=== PATIENT | male | born 1940 | race Caucasian/White ===

== ENCOUNTER 2016-05-17 13:28 | Emergency (ER) | payer MEDICARE ==
[2016-05-17 16:14] LABS: BASOPHILS 0.6 % (0.0-2.0); EOSINOPHILS 3.4 % (0-7); HEMATOCRIT 43.2 % (42.0-54.0); HEMOGLOBIN 14.6 g/dL (13.5-17.5); IMMATURE GRANULOCYTES 0.2 % (0-5); LYMPHOCYTES 41.5 % (15-50); MCH 30.6 pg (26.0-34.0); MCHC 33.8 g/dL (31.0-37.0); MCV 90.6 fL (80.0-100.0); MEAN PLATELET VOLUME 9.9 fL (7.4-10.4); MONOCYTES 10.2 % (2-11); NEUTROPHILS 44.1 % (40-80); PLATELET COUNT 214 10x3/uL (130-400); RBC 4.77 10x6/uL (4.20-6.10); RDW 13.2 % (11.5-14.5); WBC 8.5 10x3/uL (4.8-10.8)
[2016-05-17 16:53] LABS: ALBUMIN 3.8 g/dL (3.4-5.0); ALKALINE PHOSPHATASE 52 U/L (46-116); ALT (SGPT) 22 U/L (10-68); BILIRUBIN - TOTAL 0.27 mg/dL (0.2-1.3); CALC OSMOLALITY 279 mosm/kg (275-300); CALCIUM 9.2 mg/dL (8.5-10.1); CARBON DIOXIDE 30.4 mmol/L (21.0-32.0); CHLORIDE - SERUM 100 mmol/L (98-107); CREATININE - SERUM 1.2 mg/dL (0.6-1.3); GLUCOSE 114 mg/dL (74-106); POTASSIUM - SERUM 4.3 mmol/L (3.5-5.1); PROTEIN - SERUM 7.7 g/dL (6.4-8.2); SODIUM 138 mmol/L (136-145); UREA NITROGEN 20 mg/dL (7-18); eGFR NON AFRICAN AMERICAN 63 mL/min (90-120)
[2016-05-17 17:02] LABS: CKMB 1.5 U/L (0.0-3.6); CREATINE KINASE 116 UL (21-232)
[2016-05-17 17:08] LABS: TROPONIN-I < 0.017 ng/mL (0.000-0.060)
[2016-05-17 17:21] LABS: APPEARANCE CLEAR (CLEAR); BILIRUBIN NEGATIVE (NEGATIVE); COLOR YELLOW (YELLOW); GLUCOSE NEGATIVE (NEGATIVE); KETONE NEGATIVE (NEGATIVE); LEUKOCYTE ESTERASE NEGATIVE (NEGATIVE); NITRITE NEGATIVE (NEGATIVE); PROTEIN TRACE mg/dL (NEGATIVE); RED CELLS - URINE 0-5 /hpf (0-5); UROBILINOGEN NORMAL (NORMAL); WHITE CELLS - URINE OCC /hpf (0-5)
== END 2016-05-17 17:45 | disposition home or self-care (01) ==
LOC: D.ER 13:28
PROVIDERS: Nurse Practitioner Family
DX: I10 Essential (primary) hypertension (principal); R42 Dizziness and giddiness; R00.1 Bradycardia, unspecified

== ENCOUNTER → 2017-06-08 12:49 | Outpatient (CLI) | payer MEDICARE, MEDICAID ==
[~2017-06-08 12:49] MED LIST: FOLIC ACID1 MG PO; METHOTREXATE2.5 MG PO; NEXIUM20 MG PO; ORAPRED ODT10 MG/TAB; PREDNISONE5 MG PO; TREXALL15 MG; ULTRAM50 MG
[2017-06-27 10:11] VITALS: BMI 23.0
== END | disposition home or self-care (01) ==
LOC: D.CT 12:49
DX: N28.89 Other specified disorders of kidney and ureter (principal)

== ENCOUNTER → 2017-06-11 14:44 | Outpatient (CLI) | payer MEDICARE, MEDICAID ==
[2017-06-27 10:11] VITALS: BMI 23.0
== END | disposition home or self-care (01) ==
LOC: D.LAB 14:44
DX: Z12.5 Encounter for screening for malignant neoplasm of prostate (principal)

== ENCOUNTER → 2017-06-15 12:06 | Outpatient (CLI) | payer MEDICARE, MEDICAID | END | disposition home or self-care (01) | LOC: D.NM 12:06 | DX: N13.0 Hydronephrosis with ureteropelvic junction obstruction (principal) ==

== ENCOUNTER 2017-06-22 21:29 | Outpatient (CLI) | payer MEDICARE, MEDICAID ==
[~2017-06-22] VITALS: Ht 170.2 cm; Wt 66.2 kg
--- NOTE | ~2017-06-22 | OP ---
PATIENT NAME: QI GRAMAJO MEDICAL RECORD: [id number] :40 LOCATION:D.M2 D.2137 ADMISSION DATE:06/23/17 SURGEON: TERRELL PAYNE MD DATE OF OPERATION: 06/23/2017 SURGEON: Terrell Payne MD ANESTHESIA: General anesthesia by Matheus Charles CRNA PREOPERATIVE DIAGNOSIS: Left ureteropelvic junction obstruction. POSTOPERATIVE DIAGNOSIS: Left ureteropelvic junction obstruction. PROCEDURES: Cystoscopy, left retrograde pyelogram, left ureteral stent insertion of 6-Lithuanian x 26 cm without string attached. FINDINGS: On cystoscopy, large obstructive prostate. Single ureteral orifices bilaterally. No bladder tumors. On retrograde pyelogram, normal ureter. Left ureteropelvic junction obstruction with quite severe left renal pelvis hydronephrosis. BLOOD LOSS: None. CLINICAL HISTORY: This is a 76-year-old male who started developing left flank pain episodes since around 2016. A CT scan of abdomen and pelvis revealed left renal pelvis hydronephrosis with a normal-caliber ureter, suggestive of ureteropelvic junction obstruction. I obtained Lasix renal scan and this showed obstruction of the left kidney. This was consistent with UP junction. Further analysis of the images of the CT shows that the main renal artery split into an upper pole and a lower pole branch. The renal pelvis and ureteral insertion point seem to be closely associated with the upper pole renal artery branch. For this reason, he is probably going to need a dismembered pyeloplasty in the future. Since I can only offer him open surgery, I was planning to refer him to [place] for a robotic dismembered pyeloplasty. In the meantime, he came back through the Emergency Room with acute left flank pain last night. Repeat CT scan shows even greater enlargement of the left renal pelvis. Urinalysis does not show any signs of infection. He comes now to have a left ureteral stent inserted to alleviate his pain. Finally, he has an elevated PSA of 6.25 and a positive family history of prostate cancer and we will have to deal with that in the near future also. He is not allergic to any medications and he was given Ancef on-call to the OR. DESCRIPTION OF PROCEDURE: The patient was given induction of general anesthesia. He was then placed into dorsal lithotomy position and prepped and draped. A 21-Lithuanian cystoscope with 30-degree lens was used for cystoscopy. We injected lidocaine jelly into the urethra. Cystoscopy findings are outlined as above. We do not see radio densities to suggest any stones. I wanted to get an indication of how the ureter was inserted on to the renal pelvis. Therefore, a retrograde pyelogram was performed by injecting diluted contrast through a 5-Lithuanian open-ended ureteral catheter into the left ureteral orifice. The ureter seems to insert into the mid upper portion of the renal pelvis. No ureteral strictures are seen except at the UP junction. A Sensor wire was then put in through the lumen of the ureteral catheter up to the renal pelvis. The ureteral catheter was then completely removed. Over the wire, we inserted a 6-Lithuanian x 26-cm ureteral stent. The string on the distal end of stent was OPERATIVE REPORT [id number] QI GRAMAJO removed prior to insertion. The reason for this is I do not want him to accidentally pull the stent out on his own. The stent was placed into position and then the wire was withdrawn to allow the proximal end to coil. The distal end was pushed into the bladder using a pusher. The wire was then entirely withdrawn. The bladder was emptied through the cystoscope and then the scope was removed. The patient was awakened and brought to the recovery room. He will be discharged home today. He has a follow up with me on Sunday, at which time we will arrange for prostate biopsy and referral to [facility]. TRANSINT:[id number] Voice Confirmation ID: [id number] DOCUMENT ID: [id number] TERRELL PAYNE MD at 1316 CC: [id number] DICTATION DATE: 06/23/171814 FLATWORK FINISHER: 06/23/171928 DIS IN 06/23/17 [facility] [address] [place] [address]
[2017-06-22 22:54] LABS: APPEARANCE CLEAR (CLEAR); BILIRUBIN NEGATIVE (NEGATIVE); COLOR YELLOW (YELLOW); GLUCOSE NEGATIVE (NEGATIVE); KETONE NEGATIVE (NEGATIVE); NITRITE NEGATIVE (NEGATIVE); PROTEIN NEGATIVE (NEGATIVE); UROBILINOGEN NORMAL (NORMAL)
[2017-06-22 23:18] LABS: BASOPHILS 0.2 % (0-2); EOSINOPHILS 1.6 % (0-7); HEMATOCRIT 37.5 % (42.0-54.0); HEMOGLOBIN 12.8 g/dL (13.5-17.5); IMMATURE GRANULOCYTES 0.6 % (0-5); LYMPHOCYTES 22.3 % (15-50); MCH 30.3 pg (26.0-34.0); MCHC 34.1 g/dL (31.0-37.0); MCV 88.9 fL (80.0-100.0); MEAN PLATELET VOLUME 8.7 fL (7.4-10.4); MONOCYTES 11.5 % (2-11); NEUTROPHILS 63.8 % (40-80); RBC 4.22 10x6/uL (4.20-6.10); RDW 16.3 % (11.5-14.5); WBC 10.8 10x3/uL (4.8-10.8)
[2017-06-22 23:21] LABS: PLATELET COUNT 279 10x3/uL (130-400)
[2017-06-22 23:35] LABS: ALBUMIN 3.3 g/dL (3.4-5.0); ANION GAP 11.4 mmol/L (8-16); BILIRUBIN - TOTAL 0.36 mg/dL (0.2-1.3); CALCIUM 8.7 mg/dL (8.5-10.1); CARBON DIOXIDE 28.4 mmol/L (21.0-32.0); CREATININE - SERUM 2.2 mg/dL (0.6-1.3); POTASSIUM - SERUM 3.8 mmol/L (3.5-5.1)
[2017-06-23] VITALS (7 sets, daily range): BP systolic 120–162; BP diastolic 73–82; Ht 170.2 cm; Wt 66.2 kg
[2017-06-23] MEDS ORDERED: NEXIUM20 MG PO (07:38)
[2017-06-23] MEDS ORDERED: FOLIC ACID1 MG PO (07:39)
[2017-06-23] MEDS ORDERED: TREXALL15 MG (07:41)
[2017-06-23] MEDS ORDERED: ORAPRED ODT10 MG/TAB (07:42)
[2017-06-23] MEDS ORDERED: ULTRAM50 MG (07:44)
[2017-06-26] MEDS ORDERED: PREDNISONE5 MG PO (15:53)
[2017-06-26] MEDS ORDERED: METHOTREXATE2.5 MG PO (15:53)
== END 2017-06-23 22:49 | disposition home or self-care (01) ==
LOC: OBSVTIME → D.ER 21:29 → D.OPS 21:29 → OBSVTIME 06-23 02:20 → D.SDCHOLD 06-23 02:20 → D.ER 06-23 02:20 → D.M2 06-23 06:16 → D.SDCHOLD 06-23 06:16 → D.M2 06-23 22:49 → D.OPS 06-23 22:49 → D.M2 06-23 22:49
PROVIDERS: Family Medicine; Physician Assistant Medical
DX: N13.30 Unspecified hydronephrosis (principal)

== ENCOUNTER 2017-06-27 08:00 | Day surgery (SDC) | payer MEDICARE, MEDICAID | END 2017-06-27 13:50 | disposition home or self-care (01) | LOC: D.PAN 08:00 | DX: R97.20 Elevated prostate specific antigen [PSA] (principal); N13.0 Hydronephrosis with ureteropelvic junction obstruction; Z01.812 Encounter for preprocedural laboratory examination; K21.9 Gastro-esophageal reflux disease without esophagitis ==

== ENCOUNTER → 2017-10-31 07:51 | Outpatient (CLI) | payer MEDICARE, MEDICAID ==
[2017-06-27 10:11] VITALS: BMI 23.0
== END | disposition home or self-care (01) ==
LOC: D.US 07:51
DX: N50.89 Other specified disorders of the male genital organs (principal)

== ENCOUNTER → 2018-06-06 14:59 | Outpatient (CLI) | payer MEDICARE, MEDICAID ==
[2017-06-27 10:11] VITALS: BMI 23.0
== END | disposition home or self-care (01) ==
LOC: D.CT 14:59
DX: R94.39 Abnormal result of other cardiovascular function study (principal)

== ENCOUNTER → 2018-06-14 13:02 | Outpatient (CLI) | payer MEDICARE, MEDICAID ==
[2017-06-27 10:11] VITALS: BMI 23.0
[~2018-06-14 13:02] MED LIST changes: +ASPIRIN EC81 M1 PO; +FLOMAX0.4 MG PO; +PLAVIX75 MG PO; +PRAVACHOL40 MG PO
== END | disposition home or self-care (01) ==
LOC: D.CT 13:02
DX: R94.39 Abnormal result of other cardiovascular function study (principal)

== ENCOUNTER 2018-06-25 09:01 | Inpatient (IN) | payer MEDICARE, MEDICAID ==
[~2018-06-25] VITALS: Ht 170.2 cm; Wt 74.6 kg
[~2018-06-25 09:01] MED LIST changes: -ASPIRIN EC81 M1 PO; -FLOMAX0.4 MG PO; -PLAVIX75 MG PO; -PRAVACHOL40 MG PO
[2018-06-25 10:49] LABS: HEMOGLOBIN 11.9 g/dL (13.5-17.5); MCH 29.1 pg (26.0-34.0); MCHC 33.1 g/dL (31.0-37.0); RBC 4.09 10x6/uL (4.20-6.10); RDW 15.7 % (11.5-14.5); WBC 9.5 10x3/uL (4.8-10.8)
[2018-06-25 11:04] LABS: APTT 34.1 SECONDS (22.8-39.4); INR 1.01 (0.85-1.17); PROTIME 12.8 SECONDS (11.6-15.0)
[2018-06-25 11:05] LABS: ALBUMIN 3.3 g/dL (3.4-5.0); BILIRUBIN - TOTAL 0.37 mg/dL (0.2-1.3); CARBON DIOXIDE 26.8 mmol/L (21.0-32.0); CREATININE - SERUM 1.6 mg/dL (0.6-1.3); POTASSIUM - SERUM 3.8 mmol/L (3.5-5.1); PROTEIN - SERUM 8.2 g/dL (6.4-8.2)
[2018-06-25 11:31] LABS: APPEARANCE CLEAR (CLEAR); BILIRUBIN NEGATIVE (NEGATIVE); COLOR YELLOW (YELLOW); GLUCOSE NEGATIVE (NEGATIVE); KETONE NEGATIVE (NEGATIVE); NITRITE NEGATIVE (NEGATIVE); PROTEIN NEGATIVE (NEGATIVE); UROBILINOGEN NORMAL (NORMAL)
[2018-06-25 11:32] LABS: BACTERIA FEW /hpf (NONE SEEN); EPITHELIAL CELLS OCC /hpf (0-5); RED CELLS - URINE 0-5 /hpf (0-5); WHITE CELLS - URINE RARE /hpf (0-5)
[2018-06-25] MEDS ORDERED: PRAVACHOL40 MG PO (12:20)
[2018-06-25] MEDS ORDERED: PREDNISONE5 MG PO (12:22)
[2018-06-25] MEDS ORDERED: ASPIRIN EC81 M1 PO (12:23)
[2018-06-25] MEDS ORDERED: FLOMAX0.4 MG PO (12:23)
[2018-06-25] MEDS ORDERED: PLAVIX75 MG PO (12:24)
[2018-06-26] VITALS (57 sets, daily range): BP systolic 103–160; BP diastolic 43–85; Ht 170.2 cm; Wt 74.6 kg
--- NOTE | 2018-06-26 11:00 | NUR ---
PT RECEIVED TO ROOM VIA BED. PLACED ON BEDSIDE MONITORING. PT ALERT AND ORIENTED. LEFT CAROTID INCISION. DRESSING INTACT, CYRIL NOTED AND COMPRESSED. RIGHT RADIAL ART LINE, WRIST PROTECTOR IN USE. HAS PIV TO LEFT ARM, SALINE LOCKED. TEDS AND SCDS IN PLACE. CURRENTLY ON 4L NC. FAMILY IS AT BEDSIDE AT THIS TIME. PT DENIES PAIN. PLASMALYTE AT 30ML/HR, NITRO AT 11ML/HR. FARAH CATHETER WITH CONCENTRATED URINE. NO KINKS IN TUBING.
--- NOTE | 2018-06-26 11:12 | NUR ---
DAUGHTER ASSISTING PT TO PLACE HIS DENTURES. UPPER AND LOWER PLATES.
--- NOTE | 2018-06-26 19:00 | NUR ---
PT SET TO SIDE OF BED AND DANGLED. TOLERATED WELL. NO DISTRESS.
--- NOTE | 2018-06-26 22:00 | NUR ---
1929- REPORT RECEIVED, ASSESSMENT COMPLETE PER FLOW SHEET, CVP AND ART LINE ZEROED WITH CLINT RN, PT AAOx4, RESTING COMFORTABLY IN BED, MEDS INFUSING PER ORDERS SEE FLOW SHEET, CYRIL DRAIN COMPRESSED, ALL DRSGS C/D/I, PT DENIES NEEDS OR DISTRESS AT THIS TIME WILL CONTINUE TO MONITOR 2099- PT REPOSITIONED FOR COMFORT, MEDS GIVEN PER JUL, I/s TEACHING WITH PT USE x10 ATTEMPTS, PT DENIES PAIN OR NEEDS AT THIS TIME
[2018-06-27] VITALS (43 sets, daily range): BP systolic 117–151; BP diastolic 42–78
--- NOTE | 2018-06-27 00:51 | NUR ---
1999 DR YOU INFORMED OF PT STATUS. ORDER TO PULL R RADIAL FOX RECEIVED. NO COORELATION BETWEEN NIBP AND FOX. VSS. WILL CONITNUE TO MONITOR. 0100 R RADIAL FOX PULLED. CATHETER TIP INTACT. PRESSURE HELD FOR 15 MINUTES. VSS. HAND WARM TO TOUCH AND WITH FEELING. CAP REFILL LESS THAN 3 SECONDS. DRESSING APPLIED WILL CONTINUE TO MONITOR.
--- NOTE | 2018-06-27 03:30 | NUR ---
REASSESSMENT TIMED FOR 06/26/18 @ 2100; TIME PREFORMED SHOULD SHOW CORRECT ASSESSMENT TIME AT 2300
--- NOTE | 2018-06-27 04:30 | NUR ---
PT C/O INCREASING HEART BURN DISCOMFORT, PT STATES ONLY TUMS TYPE MEDS HELPS DECREASE PAIN, WILL CONTINUE TO ASSESS
--- NOTE | 2018-06-27 07:40 | NUR ---
SHIFT REPORT RECEIVED. AA&OX4. STATES THAT HE HAS A SLIGHT HEADACHE. HE IS ON NITRO AT 15ML/HR. PLASMOLYTE AT 30ML/HR. HAS R-SUB CVL. LEFT ANTERIOR NECK INCISION WITH DRESSING INTACT. ON 2L OF O2 VIA NC. SHIFT ASSESMENT COMPLETED. WILL CONTINUE TO MONITOR.
--- NOTE | 2018-06-27 07:50 | OP ---
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 PROCEDURE PERFORMED: Left carotid endarterectomy. ANESTHESIA: General endotracheal anesthesia. ESTIMATED BLOOD LOSS: 30 cc. COMPLICATIONS: None. SPECIMEN: Plaque. CONDITION: Stable. DISPOSITION: CV ICU. OPERATIVE FINDINGS: 1. Densely calcified and ulcerated plaque involving the proximal internal carotid artery, a tortuous [id number] internal carotid that was above the level of the patch. 2. Neurologically intact to CV ICU. OPERATIVE INDICATION: Symptomatic left hemispheric ischemia with ulcerated severe left internal carotid artery stenosis. DESCRIPTION OF PROCEDURE: The patient was brought to the operating suite. General anesthesia was obtained. The patient was prepped and draped. EEG was monitored as well as cerebral oximetry. The oblique incision was made in the left neck, taken down through the muscle layer. Common carotid was dissected out and encircled. External carotid and thyroid branch were dissected out and encircled with vessel loops. Internal carotid was dissected out distally, taking care not to injure the hypoglossal nerve. The heparin was given after the heparin circulated. Backbleeding was controlled with a bulldog clamp and inflow with a vascular clamp and the EEG was monitored for 2 minutes. Arteriotomy was begun of the common carotid artery, taken out to the region of the dense calcification to relatively normal regional artery. The plaque was divided in the common carotid artery with an eversion endarterectomy of the external carotid and the plaque feathered well distally. Thorough irrigation was undertaken. All bits of loose debris were removed. A CorMatrix patch was fashioned to the appropriate size and sutured along the edge of the arteriotomy. Prior to completing the anastomosis, backbleeding was allowed from all 3 major vessels. Thorough irrigation again of the endarterectomy bed was performed. OPERATIVE REPORT [id number] QI GRAMAJO Anastomosis completed, flow restored, first to the external carotid and then to the internal carotid. Interrupted patch sutures were used for hemostasis. Protamine was given. The patient was hemostatic. A separate drain was placed through a separate stab wound and then the wound was closed in 3 layers including Dermabond on the skin. Anesthesia was reversed. The patient neurologically intact to recovery room. TRANSINT:[id number] Voice Confirmation ID: [id number] DOCUMENT ID: [id number] ELMER YOU MD at 0750 CC: JR MAHARAJ [id number] DICTATION DATE: 06/26/18 1516 GEOTECHNICAL FIELD TECHNICIAN: 06/26/18 1643 ADM IN [facility] [address] [id number]
--- NOTE | 2018-06-27 09:15 | NUR ---
APRESOLINE GIVEN PER ORDERS AT THIS TIME. BP WAS IN HIGH 130S. NITRO DRIP DECREASED TO 10ML/HR. WILL CONTINUE TO MONITOR.
--- NOTE | 2018-06-27 09:40 | NUR ---
NITRO DRIP DECREASED TO 5ML/HR AT THIS TIME.
--- NOTE | 2018-06-27 11:00 | NUR ---
RE-ASSESSMENT COMPLETED. NO ACUTE CHANGES. FARAH AND CYRIL DRAIN HAVE BEEN REMOVED. PT OFF NITRO. BP IN 130S. WILL CONTINUE TO MONITOR.
--- NOTE | 2018-06-27 13:00 | NUR ---
RESTING COMFORTABLY IN CHAIR. CONTINUES TO BE OFF NITRO. BP STABLE IN 120-130S. DENIES FURTHER NEEDS. WILL CONTINUE TO MONITOR.
--- NOTE | 2018-06-27 15:00 | NUR ---
RE-ASSESMENT COMPLETED. NO ACUTE CHANGES. HR AND BP STABLE. NO FEVER NOTED. BLOOD DRAW COLLECTED AT THIS TIME FROM CVL PER ORDERS. ICE WATER PROVIDED. WILL CONTINUE TO MONITOR.
[2018-06-27 15:56] LABS: HEMATOCRIT 30.1 % (42.0-54.0); HEMOGLOBIN 10.2 g/dL (13.5-17.5); LYMPHOCYTES 13.2 % (15-50); MCH 29.7 pg (26.0-34.0); MCHC 33.9 g/dL (31.0-37.0); MCV 87.5 fL (80.0-100.0); NEUTROPHILS 76.2 % (40-80); PLATELET COUNT 293 10x3/uL (130-400); RBC 3.44 10x6/uL (4.20-6.10); RDW 15.2 % (11.5-14.5); WBC 15.5 10x3/uL (4.8-10.8)
[2018-06-27 15:59] LABS: ANION GAP 14.9 mmol/L (8-16); CALCIUM 8.2 mg/dL (8.5-10.1); CARBON DIOXIDE 26.1 mmol/L (21.0-32.0); CREATININE - SERUM 1.7 mg/dL (0.6-1.3)
--- NOTE | 2018-06-27 16:33 | MORECARE ---
CASE MANAGEMENT DISCHARGE SUMMARY PATIENT: QI GRAMAJO UNIT: [id number] ADM DATE: 06/26/18 AGE: 77 : 40 SEX: M [facility] AUTHOR: ORA ALONSO PHYSICIAN: REFERRING PHYSICIAN: LINO YOU MD DATE OF SERVICE: 06/27/18 Discharge Plan Patient Name: QI GRAMAJO [facility] [facility] 1940 Planned Disposition: Home or Self Care Anticipated Discharge Date: Discharge Date: Expected LOS: Initial Reviewer: [id number] Initial Review Date: 06/27/2018 Generated: 06/27/18 5:32 pm Patient Name: QI GRAMAJO Page [id number] at 1633 All edits/amendments must be made on the electronic document DICTATION DATE: 06/27/181631 POWER DISTRIBUTOR: NAGI 06/27/18 163 RPT#: [id number] DC DATE: STATUS: ADM IN [facility] [address] [place] [address] END OF REPORT
--- NOTE | 2018-06-27 16:43 | MORECARE ---
CASE MANAGEMENT DISCHARGE SUMMARY PATIENT: QI GRAMAJO UNIT: [id number] ADM DATE: 06/26/18 AGE: 77 : 40 SEX: M ROOM/BED: D[facility] AUTHOR: CELESTE,DOC PHYSICIAN: REFERRING PHYSICIAN: LINO YOU MD DATE OF SERVICE: 06/27/18 Discharge Plan Patient Name: QI GRAMAJO Facility: [facility]:[place] : 1940 Planned Disposition: Home or Self Care Anticipated Discharge Date: Discharge Date: Expected LOS: Initial Reviewer: [email or web address] Initial Review Date: 06/27/2018 Generated: 06/27/18 5:43 pm Comments DCP- Discharge Planning Updated by [email or web address]: Tika Villarreal on 06/27/18 3:[address] Patient Name: QI GRAMAJO Admission Status: Elective Accout number: [id number] Admission Date: 06-26-2018 : 1940 Admission Diagnosis: Attending: LINO YOU Current LOS: 1 Anticipated DC Date: Planned Disposition: Home or Self Care Primary Insurance: [employer] ADV Discharge Planning Comments: CM met with patient at bedside. Patient states that he lives at home with his (Johanny). He plans on returning to his home upon discharge. He states he doesn't have any medical equipment or have any home health services prior to admission. Patient denies any discharge needs at this time. CM will continue to follow and assist as needed with discharge planning / needs. Five Piece Expansion Maker Hand: Tika Villarreal DCPIA - Discharge Planning Initial Assessment Updated by [email or web address]: Tika Villarreal on 06/27/18 4:34 pm * Is the patient Alert and Oriented? Yes * How many steps to enter\exit or inside your home? * PCP NICK[facility] * [facility] * Preadmission Environment Home with Family * ADLs Independent * Equipment None * List name and contact numbers for known caregivers / representatives who currently or will assist patient after discharge: AARON GRAMAJO - - [phone], JONO - DAUGHTER- [phone] * Verbal permission to speak to the caregivers and representatives has been obtained from the patient. Yes * Community resources currently utilized None * Additional services required to return to the preadmission environment? No * Can the patient safely return to the preadmission environment? Yes * Has this patient been hospitalized within the prior 30 days at any hospital? No Last DP export: 06/27/18 3:33 p Patient Name: QI GRAMAJO Page [id number] at 1643 All edits/amendments must be made on the electronic document DICTATION DATE: 06/27/181641 NUT CHOPPER: NAGI 06/27/181641 RPT#: [id number] DC DATE: STATUS: ADM IN [facility] [address] [place] [address] END OF REPORT
--- NOTE | 2018-06-27 17:10 | NUR ---
R-SUB CVL DC'D AT THIS TIME. PT RESTING IN BED AT THIS TIME. INSTRUCTED TO REMAIN IN LAYING DOWN FOR 30MINUTES.
--- NOTE | 2018-06-27 17:52 | NUR ---
DISCHARGE INSTRUCTIONS REVIEW WITH PT AND HIS DAUGHTER. COPY GIVEN TO THEM. PT HAS APPOINTMENT WITH DR. YOU ON 07/17/18 AT 1020. PERSONAL BELONGINGS SENT WITH PT INCLUDING GLASSES AND CELL PHONE. WHEELED OUT IN WHEELCHAIR TO PERSONAL VEHICLE.
--- NOTE | 2018-06-27 17:59 | MORECARE ---
CASE MANAGEMENT DISCHARGE SUMMARY PATIENT: QI GRAMAJO UNIT: [id number] ADM DATE: 06/26/18 AGE: 77 : 40 SEX: M [facility] AUTHOR: CELESTE,DOC PHYSICIAN: REFERRING PHYSICIAN: LINO YOU MD DATE OF SERVICE: 06/27/18 Discharge Plan Patient Name: QI GRAMAJO Facility: [facility]:[place] : 1940 Planned Disposition: Home or Self Care Anticipated Discharge Date: Discharge Date: Expected LOS: Initial Reviewer: [email or web address] Initial Review Date: 06/27/2018 Generated: 06/27/18 6:58 pm Comments DCP- Discharge Planning Updated by [email or web address]: Tika Villarreal on 06/27/18 4:[address] D/C IMM EXPLAINED AND SERVED 06/27/18 @ 1726 DENIES ANY NEEDS. CM will continue to follow and assist as needed with discharge planning / needs. DCP- Discharge Planning Updated by [id number]: Tika Villarreal on 06/27/18 3:[address] Patient Name: QI GRAMAJO Admission Status: Elective Accout number: [id number] Admission Date: 06-26-2018 : 1940 Admission Diagnosis: Attending: LINO YOU Current LOS: 1 Anticipated DC Date: Planned Disposition: Home or Self Care Primary Insurance: [employer] MEDICARE ADV Discharge Planning Comments: CM met with patient at bedside. Patient states that he lives at home with his (Johanny). He plans on returning to his home upon discharge. He states he doesn't have any medical equipment or have any home health services prior to admission. Patient denies any discharge needs at this time. CM will continue to follow and assist as needed with discharge planning / needs. Pile Driving Supervisor: Tika Villarreal DCPIA - Discharge Planning Initial Assessment Updated by [email or web address]: Tika Villarreal on 06/27/18 4:34 pm * Is the patient Alert and Oriented? Yes * How many steps to enter\exit or inside your home? * PCP NICKO * [facility] * Preadmission Environment Home with Family * ADLs Independent * Equipment None * List name and contact numbers for known caregivers / representatives who currently or will assist patient after discharge: AARON GRAMAJO - - [phone], JONO - DAUGHTER- [phone] * Verbal permission to speak to the caregivers and representatives has been obtained from the patient. Yes * Community resources currently utilized None * Additional services required to return to the preadmission environment? No * Can the patient safely return to the preadmission environment? Yes * Has this patient been hospitalized within the prior 30 days at any hospital? No Coverage Notice Reviewer: [email or web address] Denice Villarreal Notice Issued Date-Time: 06/27/2018 17:26 Notice Type: IM Discharge Notice Notice Delivered To: Patient Relationship to Patient: Self Bacteriology Technician Name: Delivery Method: HAND - Hand Delivered Charity Days: Prior Verbal Notification: Recipient Understood Notice: Yes Recipient Signature: Yes Med Rec Note Co-signed by Attending: Coverage Notice Comment: Last DP export: 06/27/18 3:43 p Patient Name: QI GRAMAJO Page 03502 at 1759 All edits/amendments must be made on the electronic document DICTATION DATE: 06/27/181757 SCREENING NURSE: NAGI 06/27/181757 RPT#: [id number] DC DATE: STATUS: ADM IN [facility] [address] [place] [address] END OF REPORT
--- NOTE | 2018-06-28 14:12 | MORECARE ---
CASE MANAGEMENT DISCHARGE SUMMARY PATIENT: QI GRAMAJO UNIT: [id number] ADM DATE: 06/26/18 AGE: 77 : 40 SEX: M ROOM/BED: D[facility] AUTHOR: CELESTE,DOC PHYSICIAN: REFERRING PHYSICIAN: LINO YOU MD DATE OF SERVICE: 06/28/18 Discharge Plan Patient Name: QI GRAMAJO Facility: [facility]:[place] : 1940 Planned Disposition: Home or Self Care Anticipated Discharge Date: Discharge Date: 06/27/2018 Expected LOS: Initial Reviewer: [email or web address] Initial Review Date: 06/27/2018 Generated: 06/28/18 3:12 pm Comments DCP- Discharge Planning Updated by [email or web address]: Tika Villarreal on 06/27/18 4:[address] D/C IMM EXPLAINED AND SERVED 06/27/18 @ 1726 DENIES ANY NEEDS. CM will continue to follow and assist as needed with discharge planning / needs. DCP- Discharge Planning Updated by [id number]: Tika Villarreal on 06/27/18 3:[address] Patient Name: QI GRAMAJO Admission Status: Elective Accout number: [id number] Admission Date: 06-26-2018 : 1940 Admission Diagnosis: Attending: LINO YOU Current LOS: 1 Anticipated DC Date: Planned Disposition: Home or Self Care Primary Insurance: [employer]ICARE ADV Discharge Planning Comments: CM met with patient at bedside. Patient states that he lives at home with his (Johnany). He plans on returning to his home upon discharge. He states he doesn't have any medical equipment or have any home health services prior to admission. Patient denies any discharge needs at this time. CM will continue to follow and assist as needed with discharge planning / needs. Communications Department Chair: Tika Villarreal DCPIA - Discharge Planning Initial Assessment Updated by [email or web address]: Tika Villarreal on 06/27/18 4:34 pm * Is the patient Alert and Oriented? Yes * How many steps to enter\exit or inside your home? * PCP [facility]O * [facility] * Preadmission Environment Home with Family * ADLs Independent * Equipment None * List name and contact numbers for known caregivers / representatives who currently or will assist patient after discharge: AARON GRAMAJO - - [phone], JONO - DAUGHTER- [phone] * Verbal permission to speak to the caregivers and representatives has been obtained from the patient. Yes * Community resources currently utilized None * Additional services required to return to the preadmission environment? No * Can the patient safely return to the preadmission environment? Yes * Has this patient been hospitalized within the prior 30 days at any hospital? No Coverage Notice Reviewer: [id number] Denice Villarreal Notice Issued Date-Time: 06/27/2018 17:26 Notice Type: IM Discharge Notice Notice Delivered To: Patient Relationship to Patient: Self Department Head Name: Delivery Method: HAND - Hand Delivered Charity Days: Prior Verbal Notification: Recipient Understood Notice: Yes Recipient Signature: Yes Med Rec Note Co-signed by Attending: Coverage Notice Comment: Last DP export: 06/27/18 4:58 p Patient Name: QI GRAMAJO Page 27721 at 1412 All edits/amendments must be made on the electronic document DICTATION DATE: 06/28/18 1411 TEACHER EDUCATION INSTRUCTOR: NAGI 06/28/18 1411 RPT#: [id number] DC DATE:06/27/18 STATUS: DIS IN [facility] [address] [place] [address] END OF REPORT
== END 2018-06-27 17:52 | disposition home or self-care (01) | DRG 39 ==
LOC: D.CVICU 06-26 07:00 → D.SDCHOLD 06-26 07:30 → D.CVICU 06-27 17:52
PROVIDERS: Internal Medicine Cardiovascular Disease; ADMIT Thoracic Surgery (Cardiothoracic Vascular Surgery)
PROC: 03UL0JZ Supplement Left Internal Carotid Artery with Synthetic Substitute, Open Approach (ICD-10-PCS; 2018-06-26)
PROC: 03CL0ZZ Extirpation of Matter from Left Internal Carotid Artery, Open Approach (ICD-10-PCS; principal; 2018-06-26 07:30)
DX: I65.22 Occlusion and stenosis of left carotid artery (principal); N18.3 Chronic kidney disease, stage 3 (moderate); E78.5 Hyperlipidemia, unspecified; M06.9 Rheumatoid arthritis, unspecified

== ENCOUNTER → 2019-01-10 12:59 | Outpatient (CLI) | payer MEDICARE, MEDICAID ==
[2018-06-26 10:31] VITALS: BMI 23.5
[~2019-01-10 12:59] MED LIST changes: +ASPIRIN EC81 M1 PO; +FLOMAX0.4 MG PO; +PLAVIX75 MG PO; +PRAVACHOL40 MG PO
== END | disposition home or self-care (01) ==
LOC: D.US 12:59
PROVIDERS: ATTEND Thoracic Surgery (Cardiothoracic Vascular Surgery)
DX: I65.23 Occlusion and stenosis of bilateral carotid arteries (principal)

== ENCOUNTER → 2020-01-20 13:12 | Outpatient (CLI) | payer MEDICARE, MEDICAID ==
[2018-06-26 10:31] VITALS: BMI 23.5
== END | disposition home or self-care (01) ==
LOC: D.US 13:12
PROVIDERS: ATTEND Thoracic Surgery (Cardiothoracic Vascular Surgery)
DX: I65.29 Occlusion and stenosis of unspecified carotid artery (principal)

== ENCOUNTER → 2020-01-27 11:42 | Outpatient (CLI) | payer MEDICARE, MEDICAID ==
[2018-06-26 10:31] VITALS: BMI 23.5
== END | disposition home or self-care (01) ==
LOC: D.CT 11:42
PROVIDERS: ATTEND Thoracic Surgery (Cardiothoracic Vascular Surgery)
DX: I65.23 Occlusion and stenosis of bilateral carotid arteries (principal)

== ENCOUNTER → 2020-02-06 09:55 | Outpatient (CLI) | payer MEDICARE, MEDICAID ==
[2018-06-26 10:31] VITALS: BMI 23.5
--- NOTE | 2020-02-10 08:21 | EC ---
PATIENT:QI GRAMAJO DATE OF SERVICE: 02/06/20 SEX: M MEDICAL RECORD: [id number] DATE OF : [birth year] LOCATION:D[facility] AGE OF PATIENT: 79 ADMISSION DATE: 02/06/20 REFERRING PHYSICIAN: INTERPRETING PHYSICIAN: MARTHA RUSSELL MD ECHOCARDIOGRAM REPORT ECHO CHARGES 4 ECHO COMPLETE Date: 02/06/20 CLINICAL DIAGNOSIS: DYSARTHRIA/ASSESS FOR ASD/VSD PFO ECHOCARDIOGRAPHIC MEASUREMENTS (adult normal given) AC root (d.<3.7cm) 3.1 cm LV Septum d (<1.2 cm> 1.3 cm Valve Excursion 1.4 cm LV Septum (systole) 1.6 cm Left Atria (s.<4.0cm> 3.6 cm LVPW d(<1.2cm) 1.3 cm RV (d.<2.3cm) 3.8 cm LVPW (sytole) 1.7 cm LV diastole(<5.6CM) 4.5 cm MV E-F(>70mm/sec) cm LV systole 2.3 cm LVOT Diameter 1.8 cm MV exc.(>10mm) 1.5 cm Est.ejection fraction (50-75%) % DOPPLER: LVIT cm/sec A 103.0cm/sec E 77.0 cm/sec LA cm/sec RVSP 27 mmHg LVOT 104 cm/sec AOP1/2T m/s Asc. Ao 170 cm/sec RVOT 76 cm/sec RA cm/sec PA 156 cm/sec AV Gradient Peak 11.53mmHg AV Mean 6.40 mmHg AV Area 2.3 cm MV Gradient Peak 4.69 mmHg MV Mean 1.45 mmHg MV Area cm COMMENTS: Dental Assistant Teacher: 2 KAL VAELRO Paper Cone Machine Tender: 3 Dr. Hernandez TAPE# PACS Pericardial Effusion N DATE OF SERVICE: Adequate 2D, color flow imaging, spectral Doppler, and M-Mode. Mild LVH. LV internal dimensions are normal. Wall motion is normal. EF is greater than or equal to 55%. Aortic valve is sclerotic. No evidence of stenosis by Doppler interrogation. Mild AI by color flow imaging. Left atrium is normal at 3.6 cm. Mitral valve shows no prolapse. Trace MR. Right-sided chambers are grossly normal. Mild TR. ECHOCARDIOGRAM REPORT [id number] QI GRAMAJO TRANSINT:[id number] Voice Confirmation ID: [id number] DOCUMENT ID: [id number] MARTHA RUSSELL MD at 0821 CC: [id number] DICTATION DATE: 02/09/20 1224 COMPOUND COATING MACHINE OFFBEARER: 02/09/202056 DEP CLI 02/06/20 [facility] [address] [id number]
== END | disposition home or self-care (01) ==
LOC: D.HCCECHO 09:55
PROVIDERS: ATTEND Internal Medicine Interventional Cardiology
DX: R42 Dizziness and giddiness (principal)

== ENCOUNTER → 2020-07-12 13:42 | Outpatient (CLI) | payer MEDICARE, MEDICAID ==
[2018-06-26 10:31] VITALS: BMI 23.5
[2020-07-12 14:40] LABS: ALBUMIN 3.8 g/dL (3.4-5.0); ANION GAP 13.7 mmol/L (8-16); BILIRUBIN - TOTAL 0.32 mg/dL (0.2-1.3); CALCIUM 9.3 mg/dL (8.5-10.1); CARBON DIOXIDE 25.6 mmol/L (21.0-32.0); CREATININE - SERUM 1.6 mg/dL (0.6-1.3); POTASSIUM - SERUM 4.3 mmol/L (3.5-5.1); PROTEIN - SERUM 8.1 g/dL (6.4-8.2)
== END | disposition home or self-care (01) ==
LOC: D.CT 13:30
PROVIDERS: ATTEND Psychiatry & Neurology Neurology
DX: Z86.73 Personal history of transient ischemic attack (TIA), and cerebral infarction without residual deficits (principal)

== ENCOUNTER → 2020-09-09 12:19 | Outpatient (CLI) | payer MEDICARE, MEDICAID ==
[2018-06-26 10:31] VITALS: BMI 23.5
== END | disposition home or self-care (01) ==
LOC: D.RT 12:19
PROVIDERS: ATTEND Family Medicine
DX: R06.00 Dyspnea, unspecified (principal)